=== PATIENT | female | born 1950 | race Caucasian/White ===

== ENCOUNTER → 2017-02-03 | Outpatient (CLI) | payer MEDICARE, OTHER | LOC: MC.RAD 08:29 | DX: N63 Unspecified lump in breast (principal) ==

== ENCOUNTER → 2017-08-04 | Outpatient (CLI) | payer MEDICARE, OTHER ==
[~2017-08-04] MED LIST: ALEVE 220MG220 MG PO; FLEXERIL 1010 MG/TAB PO; MULTIPLE VITAMI1 CAP PO; NORCO 325 MG-51 TAB PO; PREMARIN 0.9MG0.9 MG PO; PRILOSEC10 MG PO; ULTRAM 50MG TAB50 MG PO; VASOTEC20 MG PO; ZYRTEC 10MG10 MG PO
== END ==
LOC: MC.RAD 09:40
DX: Z12.31 Encounter for screening mammogram for malignant neoplasm of breast (principal)

== ENCOUNTER → 2017-08-18 | Outpatient (CLI) | payer MEDICARE, OTHER | LOC: MHCPAIN 14:44 | DX: G89.29 Other chronic pain (principal); M47.817 Spondylosis without myelopathy or radiculopathy, lumbosacral region; M53.3 Sacrococcygeal disorders, not elsewhere classified; M41.9 Scoliosis, unspecified | CPT/HCPCS: G0463 ==

== ENCOUNTER → 2017-09-04 | Outpatient (CLI) | payer MEDICARE, OTHER | LOC: MHCPAIN 08:25 | DX: M47.817 Spondylosis without myelopathy or radiculopathy, lumbosacral region (principal); M46.86 Other specified inflammatory spondylopathies, lumbar region; M41.9 Scoliosis, unspecified ==

== ENCOUNTER → 2017-09-10 | Outpatient (CLI) | payer MEDICARE, OTHER | LOC: MHCPAIN 14:48 | DX: G89.29 Other chronic pain (principal); M47.817 Spondylosis without myelopathy or radiculopathy, lumbosacral region; M79.1 Myalgia; M41.9 Scoliosis, unspecified | CPT/HCPCS: G0463 ==

== ENCOUNTER → 2017-09-12 | Outpatient (CLI) | payer MEDICARE, OTHER | LOC: MHCPAIN 07:44 | DX: M70.62 Trochanteric bursitis, left hip (principal); M70.61 Trochanteric bursitis, right hip | CPT/HCPCS: J1040 ==

== ENCOUNTER → 2017-10-14 | Outpatient (CLI) | payer MEDICARE, OTHER | LOC: MHCPAIN 08:35 | DX: G89.29 Other chronic pain (principal); M47.27 Other spondylosis with radiculopathy, lumbosacral region; M53.3 Sacrococcygeal disorders, not elsewhere classified; M41.9 Scoliosis, unspecified | CPT/HCPCS: G0463 ==

== ENCOUNTER → 2017-11-13 | Outpatient (CLI) | payer MEDICARE, OTHER | LOC: MHCPAIN 08:39 | DX: M47.817 Spondylosis without myelopathy or radiculopathy, lumbosacral region (principal); M41.9 Scoliosis, unspecified; M46.86 Other specified inflammatory spondylopathies, lumbar region ==

== ENCOUNTER → 2017-11-19 | Outpatient (CLI) | payer MEDICARE, OTHER | LOC: MHCPAIN 08:42 | DX: G89.29 Other chronic pain (principal); M47.817 Spondylosis without myelopathy or radiculopathy, lumbosacral region; M54.16 Radiculopathy, lumbar region; M53.3 Sacrococcygeal disorders, not elsewhere classified; M41.9 Scoliosis, unspecified | CPT/HCPCS: G0463 ==

== ENCOUNTER → 2017-12-11 | Outpatient (CLI) | payer MEDICARE, OTHER | LOC: MHCPAIN 08:05 | DX: M47.817 Spondylosis without myelopathy or radiculopathy, lumbosacral region (principal); M51.06 Intervertebral disc disorders with myelopathy, lumbar region; M41.26 Other idiopathic scoliosis, lumbar region | CPT/HCPCS: J1100; J3010; Q9967 ==

== ENCOUNTER → 2017-12-23 | Outpatient (CLI) | payer MEDICARE, OTHER | LOC: MHCPAIN 08:38 | DX: G89.29 Other chronic pain (principal); M47.817 Spondylosis without myelopathy or radiculopathy, lumbosacral region; M54.16 Radiculopathy, lumbar region; M53.3 Sacrococcygeal disorders, not elsewhere classified; M79.1 Myalgia; M41.9 Scoliosis, unspecified | CPT/HCPCS: G0463 ==

== ENCOUNTER → 2017-12-31 | Outpatient (CLI) | payer MEDICARE, OTHER | LOC: MHCPAIN 14:30 | DX: M47.27 Other spondylosis with radiculopathy, lumbosacral region (principal); G57.01 Lesion of sciatic nerve, right lower limb | CPT/HCPCS: J1040 ==

== ENCOUNTER → 2018-02-02 | Outpatient (CLI) | payer MEDICARE, OTHER | LOC: MHCPAIN 12:40 | DX: G89.29 Other chronic pain (principal); M47.817 Spondylosis without myelopathy or radiculopathy, lumbosacral region; M54.16 Radiculopathy, lumbar region; M53.3 Sacrococcygeal disorders, not elsewhere classified | CPT/HCPCS: G0463 ==

== ENCOUNTER → 2018-03-04 | Outpatient (CLI) | payer MEDICARE, OTHER | LOC: MHCPAIN 10:57 | DX: G89.29 Other chronic pain (principal); M47.817 Spondylosis without myelopathy or radiculopathy, lumbosacral region; M54.16 Radiculopathy, lumbar region; M53.3 Sacrococcygeal disorders, not elsewhere classified | CPT/HCPCS: G0463 ==

== ENCOUNTER → 2018-03-12 | Outpatient (CLI) | payer MEDICARE, OTHER | LOC: MHCPAIN 12:04 | DX: M47.817 Spondylosis without myelopathy or radiculopathy, lumbosacral region (principal); M48.061 Spinal stenosis, lumbar region without neurogenic claudication; M41.9 Scoliosis, unspecified | CPT/HCPCS: J1040; Q9967 ==

== ENCOUNTER → 2018-04-14 | Outpatient (CLI) | payer MEDICARE, OTHER | LOC: MHCPAIN 13:34 | DX: G89.29 Other chronic pain (principal); M47.817 Spondylosis without myelopathy or radiculopathy, lumbosacral region; M54.16 Radiculopathy, lumbar region; M53.3 Sacrococcygeal disorders, not elsewhere classified; M41.9 Scoliosis, unspecified; M79.1 Myalgia | CPT/HCPCS: G0463 ==

== ENCOUNTER → 2018-04-23 | Outpatient (CLI) | payer MEDICARE, OTHER | LOC: MHCPAIN 08:25 | DX: M47.817 Spondylosis without myelopathy or radiculopathy, lumbosacral region (principal); M41.9 Scoliosis, unspecified; M48.061 Spinal stenosis, lumbar region without neurogenic claudication | CPT/HCPCS: J1040; J1100; Q9967 ==

== ENCOUNTER → 2018-06-24 | Outpatient (CLI) | payer MEDICARE, OTHER | LOC: MHCPAIN 09:14 | DX: G89.29 Other chronic pain (principal); M47.817 Spondylosis without myelopathy or radiculopathy, lumbosacral region; M54.16 Radiculopathy, lumbar region; M53.3 Sacrococcygeal disorders, not elsewhere classified | CPT/HCPCS: G0463 ==

== ENCOUNTER → 2018-07-07 | Outpatient (CLI) | payer MEDICARE, OTHER | LOC: MHCPAIN 10:36 | DX: M79.10 Myalgia, unspecified site (principal) ==

== ENCOUNTER → 2018-08-05 | Outpatient (CLI) | payer MEDICARE, OTHER | LOC: MHCPAIN 09:19 | DX: G89.29 Other chronic pain (principal); M47.817 Spondylosis without myelopathy or radiculopathy, lumbosacral region; M54.16 Radiculopathy, lumbar region; M53.3 Sacrococcygeal disorders, not elsewhere classified; M96.1 Postlaminectomy syndrome, not elsewhere classified; M47.814 Spondylosis without myelopathy or radiculopathy, thoracic region | CPT/HCPCS: G0463 ==

== ENCOUNTER → 2018-08-14 | Outpatient (CLI) | payer MEDICARE, OTHER | LOC: MC.RAD 08:30 | DX: Z12.31 Encounter for screening mammogram for malignant neoplasm of breast (principal) ==

== ENCOUNTER → 2018-11-02 | Outpatient (CLI) | payer MEDICARE, OTHER | LOC: MHCPAIN 09:41 | DX: G89.29 Other chronic pain (principal); M47.817 Spondylosis without myelopathy or radiculopathy, lumbosacral region; M54.16 Radiculopathy, lumbar region; M53.3 Sacrococcygeal disorders, not elsewhere classified | CPT/HCPCS: G0463 ==

== ENCOUNTER → 2018-11-04 | Outpatient (CLI) | payer MEDICARE | LOC: MHCPAIN 14:41 | DX: M25.551 Pain in right hip (principal); M25.552 Pain in left hip | CPT/HCPCS: J1040 ==

== ENCOUNTER 2018-12-07 10:00 | Outpatient (RCR) | payer MEDICARE, OTHER ==
[2019-01-15] MEDS ORDERED: LIORESAL 1010 MG/TAB PO (08:36)
[2019-01-15] MEDS ORDERED: ZYRTEC 10MG10 MG PO (08:37)
[2019-01-15] MEDS ORDERED: NEURONTIN300 MG/CAP PO (08:38)
[2019-01-15] MEDS ORDERED: IMITREX50 MG PO (08:38)
[2019-01-15] MEDS ORDERED: PHENERGAN 25 TA25 MG PO (08:38)
[2019-01-15] MEDS ORDERED: BRILINTA90 MG PO (13:08)
[2019-01-15] MEDS ORDERED: LIPITOR 80MG80 MG PO (13:09)
[2019-01-15] MEDS ORDERED: ASPIRIN E.C. 8181 MG PO (13:10)
== END 2019-01-14 11:36 | disposition home or self-care (01) ==
LOC: MKS.ESL.PT 10:00
DX: M54.16 Radiculopathy, lumbar region (principal); M47.817 Spondylosis without myelopathy or radiculopathy, lumbosacral region; M53.3 Sacrococcygeal disorders, not elsewhere classified; G89.29 Other chronic pain; Z79.891 Long term (current) use of opiate analgesic; Z79.899 Other long term (current) drug therapy

== ENCOUNTER → 2019-02-17 | Outpatient (CLI) | payer MEDICARE ==
[~2019-02-17] MED LIST changes: +ASPIRIN E.C. 8181 MG PO; +BRILINTA90 MG PO; +IMITREX50 MG PO; +LIORESAL 1010 MG/TAB PO; +LIPITOR 80MG80 MG PO; +NEURONTIN300 MG/CAP PO; +PHENERGAN 25 TA25 MG PO
== END ==
LOC: MHCPAIN 12:29
DX: G89.29 Other chronic pain (principal); M47.817 Spondylosis without myelopathy or radiculopathy, lumbosacral region; M54.16 Radiculopathy, lumbar region; M53.3 Sacrococcygeal disorders, not elsewhere classified; M47.814 Spondylosis without myelopathy or radiculopathy, thoracic region
CPT/HCPCS: G0463

== ENCOUNTER → 2019-03-02 | Outpatient (CLI) | payer MEDICARE | LOC: MHCPAIN 11:02 | DX: M70.62 Trochanteric bursitis, left hip (principal) | CPT/HCPCS: J1040 ==